=== PATIENT | male | born 1980 | race Caucasian/White ===

== ENCOUNTER 2020-01-19 13:45 | Inpatient (IN) | payer OTHER, SELFPAY ==
[2020-01-19] MEDS ORDERED: Midazolam HCl 5 mg/ml Vial ONE (14:03)
[2020-01-19 14:31] LABS: Bilirubin Negative (Negative); Blood, Urine Negative (Negative); Clarity Clear (Clear); Glucose, Urine (Dipstick) Normal (Negative); Ketone, Urine 10 mg/dL (Negative); Leukocyte Negative Leu/uL (Negative); Nitrite Negative (Negative); Protein, Urine (Dipstick) 20 mg/dL (Neg-Trace); Specific Gravity, Urine 1.035 (1.002-1.036); Urobilinogen Normal mg/dL (Less than 2); pH, Urine 5.5 (5.0-9.0)
[2020-01-19 14:42] LABS: #Basophils 0.1 thou/uL (0.0-0.2); #Eosinphils 0.2 thou/uL (0.0-0.7); #Lymphocytes 2.1 thou/uL (1.20-3.40); #Monocytes 1.1 thou/uL (0.11-0.59); #Neutrophils 6.3 thou/uL (1.40-6.50); %Basophils 0.8 % (0.0-1.0); %Eosinophils 1.7 % (0.0-10.0); %Lymphocytes 21.6 % (21.0-51.0); %Monocytes 11.6 % (0.0-10.0); %Neutrophils 64.2 % (42.0-75.0); Hemoglobin 15.2 g/dL (14.0-18.0); Mean Corpuscular HGB CONC 35.2 g/dL (32.0-36.0); Mean Platelet Volume 6.3 fL (7.4-10.4); Platelet Count 374 thou/uL (130-400); RBC Distribution Width 11.2 % (11.5-14.5); Red Blood Cell (RBC) Count 4.89 mill/uL (4.70-6.10); White Blood Cell (WBC) Count 9.9 thou/uL (4.8-10.8)
[2020-01-19 14:58] LABS: Amphetamine Detected (NotDetected); Barbiturates Screen Not Detected (NotDetected); Benzodiazepine Screen Not Detected (NotDetected); Cocaine Metabolite Screen Not Detected (NotDetected); Medtox Control Line Valid? VALID (VALID); Medtox Reader # READER 1; Methadone Not Detected (NotDetected); Methamphetamine Detected (NotDetected); Opiate Screen Not Detected (NotDetected); Oxycodone Screen Not Detected (NotDetected); Phencyclidine (PCP) Not Detected (NotDetected); THC/Cannabinoid Screen Detected (NotDetected); Tricyclic Screen Not Detected (NotDetected)
[2020-01-19 15:03] LABS: Acetaminophen Less than 6.0 mcg/mL (10.0-30.0); Alcohol Less than 10 mg/dL (Less than 10); CK (CPK) 2946 U/L (30-200); Salicylate Less than 8.0 mg/dL (15.0-30.0)
[2020-01-19 15:06] LABS: ALT (SGPT) 65 U/L (8-55); AST (SGOT) 135 U/L (5-34); Albumin 4.1 g/dL (3.5-5.0); Alkaline Phosphatase 46 U/L (40-110); Anion Gap 16 mmol/L (10-20); BUN (Urea Nitrogen) 25 mg/dL (8.9-20.6); Bilirubin, Total 2.4 mg/dL (0.2-1.2); Calc. Creatinine Clearance 0 mL/min (70-130); Carbon Dioxide 26 mmol/L (22-29); Chloride 100 mmol/L (98-107); Globulin 2.8 g/dL (2.4-3.5); Glucose 85 mg/dL (70-105); Potassium 3.6 mmol/L (3.5-5.1); Protein, Total 6.9 g/dL (6.0-8.3); Sodium 138 mmol/L (136-145)
--- NOTE | 2020-01-19 15:31 | PDOC.FPRHP ---
- History of Present Illness Chief Complaint: AMS History of Present Illness: Patient is a 39yo with a history of Schizoaffective disorder who is brought to the ED by police due to erratic behavior. Patient was taken into police custody yesterday evening, and since this has had erratic behavior including delusions of his mom being with him, statements about "binomial code that God was bringing", and periods where he bursts out in screams about "saving the children" after periods of calm. History was obtained by the sheriff sosa. Due to his agitation patient received 4mg versed on arrival to the ED. He would wake up briefly and answer a few questions before going to sleep. Often did not make sense talking about children. Denies pain anywhere. Denied SI. - Allergies/Adverse Reactions Allergies Allergy/AdvReac Type Severity Reaction Status Date / Time No Known Allergies Allergy Unverified 01/19/20 17:08 - History PMHx: SChizoaffective Disorder, Liver Cirrhosis (obtained from ER records) PSHx: inguinal hernia surgery x3, nasal surgery (per ER records) FHx: unknown Social: unable to obtain - Review of Systems ROS unobtainable: due to mental status (currently sleeping, would wake up for short periods of time, answered no pain) - Vital signs BP: 129/67, Pulse: 85, Resp: 17, Temp: 97.7 (Oral), Pain: 0, O2 sat: 96 on (Room Air), Wt 83.9kg - Physical Exam -Constitutional: Currently sleeping, would only wake up briefly HEENT: PERRLA, MMM, other (healing ecchymosis bialteral eye lids, healing laceration across forehead) Neck: supple, trachea midline Heart: RRR, normal S1/S2, no murmurs/rubs/gallops Lungs: CTAB, no respiratory distress, no wheezing Abdomen: soft, non-tender, bowel sounds present Musculoskeletal: normal structure, normal tone Neurological: no focal deficit Skin: no rash/lesions, good turgor, no jaundice Heme/Lymphatic: no purpura, no petechia FMR H&P: Results - Labs Result Diagrams: 01/19/20 14:25 01/19/20 14:25 Lab results: WBC 9.9 thou/uL (4.8-10.8) 01/19/20 14:25 Hgb 15.2 g/dL (14.0-18.0) 01/19/20 14:25 Hct 43.1 % (42.0-52.0) 01/19/20 14:25 MCV 88.0 fL (78.0-98.0) 01/19/20 14:25 Plt Count 374 thou/uL (130-400) 01/19/20 14:25 Neutrophils % 64.2 % (42.0-75.0) 01/19/20 14:25 Sodium 138 mmol/L (136-145) 01/19/20 14:25 Potassium 3.6 mmol/L (3.5-5.1) 01/19/20 14:25 Chloride 100 mmol/L (98-107) 01/19/20 14:25 Carbon Dioxide 26 mmol/L (22-29) 01/19/20 14:25 BUN 25 mg/dL (8.9-20.6) H 01/19/20 14:25 Creatinine 0.94 mg/dL (0.7-1.3) 01/19/20 14:25 Glucose 85 mg/dL (70-105) 01/19/20 14:25 Calcium 9.0 mg/dL (7.8-10.44) 01/19/20 14:25 Total Bilirubin 2.4 mg/dL (0.2-1.2) H 01/19/20 14:25 AST 135 U/L (5-34) H 01/19/20 14:25 ALT 65 U/L (8-55) H 01/19/20 14:25 Alkaline Phosphatase 46 U/L (40-110) 01/19/20 14:25 Creatine Kinase 2946 U/L (30-200) H 01/19/20 14:25 Serum Total Protein 6.9 g/dL (6.0-8.3) 01/19/20 14:25 Albumin 4.1 g/dL (3.5-5.0) 01/19/20 14:25 Urine Ketones 10 mg/dL (Negative) A 01/19/20 14:11 Urine Blood Negative (Negative) 01/19/20 14:11 Urine Nitrite Negative (Negative) 01/19/20 14:11 Ur Leukocyte Esterase Negative Darryl/uL (Negative) 12/10/20 14:11 FMR H&P: A/P - Plan Rhabdomyolysis 2/2 Drug/ETOH Toxicity CK 2946, UA wnl UDS + THC/Cannabinoid, methamphetamine, amphetamine - CIRILO ordered - LR @ 200ml/hr - trend CKs Acute Psychosis 2/2 Schizoaffective Disorder vs Acute Toxic Encephalopathy 2/2 Drugs/ETOH UDS + THC/Cannabinoid, methamphetamine, amphetamine Suspect acute psychosis however could be acute alcohol intoxication or withdrawal - ASE protocol, oral thiamine - Haldol 5mg IV q4h prn for agitation, if withdrawal symptoms evident, consider switching to ativan - Hydro Sprayer Operator on substance abuse - [facility] consult once patient stable Elevated Enzymes, likely 2/2 ETOH abuse Hx of Liver Cirrhosis documented in ED history - AST/ALT 135/65 - will continue to monitor Code status: Full Fluids: IVFs Dispo: admit inpatient medicine, LOS likely >48 hours FMR H&P: Upper Level - Plan Date/Time: 01/19/20 1531 I, Rich Saxena DO, have evaluated this patient and agree with findings/plan as outlined by internal medicine nurse resident. Pertinent changes/additions are listed here. 39 yo m w/ pmhx of multiple psychiatric disorders and substance abuse presents from senior care with agitation. He is somnolent and does not readily respond to questioning on my exam. information is obtained from homicide squad commanding officer in room. arrested last night, with increasing agitation today, reported delusions, psychomotor agitation, auditory and visual hallucinations reported. in ED his CK and liver enzymes are elevated. otherwise UA and other labs are wnl. 4mg versed given in ED. Acute intoxication vs withdrawal vs psychosis. Most likely being psychosis we will treat agitation with prn haldol, we will place him on ASE protocol, for possible withdrawal and consider switching to ativan prn if withdr awal symptoms are more prominent. Will IVF rescus. and monitor CK. MR consult when stable. admit to inpt med. Addendum - Attending - Attending Attestation Date/Time: 01/19/20 1622 I personally evaluated the patient and discussed the management with Dr. Hernandez/Hemanth. I agree with the History, Examination, Assessment and Plan documented above with any addition or exceptions noted below. Patient here with police with supposed hallucinations, aggression, and polysubstance abuse. On labs, he was found to have elevated CK, no evidence of myoglobinuria on UA. He will be admitted for IVF hydration, strict I/O. Haldol PRN agitation, will likely need MR clearance prior to discharge. Hydro Sprayer Operator on substance abuse.
--- NOTE | 2020-01-19 15:45 | RAD ---
SINGLE VIEW OF THE CHEST: COMPARISON: None. HISTORY: Altered mental status. FINDINGS: Single view of the chest shows a normal sized cardiomediastinal silhouette. There is no evidence of c onsolidation, mass, or pleural effusion. The bones are unremarkable. IMPRESSION: No evidence of acute cardiopulmonary disease. POS: EAA
[2020-01-19] MEDS: Haloperidol Lactate 5 MG/ML VIAL SLOW IVP PRN ×2 (18:45→22:43)
[2020-01-19] MEDS: Lactated Ringer's 1,000 ML IV SCH ×2 (19:16→19:27)
[2020-01-19 19:22] VITALS: BMI 22.2
[2020-01-20] MEDS: Lactated Ringer's 1,000 ML IV SCH ×2 (00:27→10:46)
[2020-01-20] MEDS: Haloperidol Lactate 5 MG/ML VIAL SLOW IVP PRN (03:34)
--- NOTE | 2020-01-20 06:33 | PDOC.FM ---
- Subjective Subjective: Patient is sitting up eating in bed. Reports that he is in no pain. Denies auditory or visual hallucinations, SI/HI. States he has no pysch history. Will not say why he got put in skilled nursing. Denies substance abuse, or alcohol abuse. Reports bilateral hand swelling. Overnight report from nurse is that patient woke up a few times very agitated and screaming, was given haldol and calmed down and went back to sleep. - Objective MAR Reviewed: Yes Vital Signs & Weight: Weight Weight 66.406 kg I&O: 01/18/20 01/19/20 01/20/20 06:59 06:59 06:59 Intake Total 2300 Output Total 1200 Balance 1100 Result Diagrams: 01/20/20 05:57 01/20/20 05:57 Phys Exam - Physical Examination Constitutional: NAD HEENT: PERRLA, moist MMs Respiratory: no wheezing, clear to auscultation bilateral Cardiovascular: RRR, no significant murmur Gastrointestinal: soft, non-tender, positive bowel sounds edema in bilateral hands Neurological: non-focal, moves all 4 limbs Psychiatric: normal affect, A&O x 3 Skin: no rash Dx/Plan - Plan Plan: Rhabdomyolysis 2/2 Drug/ETOH Toxicity CK 2946 --> 1031 , UA wnl UDS + THC/Cannabinoid, methamphetamine, amphetamine - continue IVFs - will get repeat CK later this morning Acute Psychosis 2/2 Schizoaffective Disorder vs Acute Toxic Encephalopathy 2/2 Drugs/ETOH UDS + THC/Cannabinoid, methamphetamine, amphetamine Suspect acute psychosis however could be acute alcohol intoxication or withdrawa l - ASE protocol, oral thiamine - Haldol 5mg IV q4h prn for agitation, if withdrawal symptoms evident, consider switching to ativan - Senior Electronics Design Engineer on substance abuse - [facility] consult once patient stable possibly later this morning if CK improved Elevated Enzymes, likely 2/2 ETOH abuse Hx of Liver Cirrhosis documented in ED history - AST/ALT 72/47 - will continue to monitor Code status: Full Fluids: IVFs Dispo: admit inpatient medicine, LOS likely >48 hours Addendum - Attending - Attending Attestation Date/Time: 01/20/20 1039 I personally evaluated the patient and discussed the management with Dr. Hernandez. I agree with the History, Examination, Assessment and Plan documented above with any addition or exceptions noted below. Mentation improved. CK downtrending appropriately. Will recheck at noon and suspect he will be medically stable for discharge at that time, will likely need MHMR clearance prior to dc given his appearance of psychosis yesterday.
[2020-01-20 06:47] LABS: ALT (SGPT) 47 U/L (8-55); AST (SGOT) 72 U/L (5-34); Albumin 2.9 g/dL (3.5-5.0); Alkaline Phosphatase 36 U/L (40-110); Anion Gap 10 mmol/L (10-20); BUN (Urea Nitrogen) 15 mg/dL (8.9-20.6); Bilirubin, Total 1.3 mg/dL (0.2-1.2); CK (CPK) 1031 U/L (30-200); Calc. Creatinine Clearance 112 mL/min (70-130); Calcium 7.6 mg/dL (7.8-10.44); Carbon Dioxide 26 mmol/L (22-29); Chloride 106 mmol/L (98-107); Globulin 1.9 g/dL (2.4-3.5); Glucose 154 mg/dL (70-105); Potassium 3.6 mmol/L (3.5-5.1); Protein, Total 4.8 g/dL (6.0-8.3); Sodium 138 mmol/L (136-145)
[2020-01-20 06:48] LABS: Band 1 % (5-11); Eosinophils 1 % (0-10); Hemoglobin 13.1 g/dL (14.0-18.0); Lymphocytes 44 % (21-51); MDiff Complete? YES; Mean Corpuscular HGB CONC 34.9 g/dL (32.0-36.0); Mean Corpuscular Hemoglobin 31.2 pg (27.0-31.0); Mean Corpuscular Volume 89.2 fL (78.0-98.0); Mean Platelet Volume 6.5 fL (7.4-10.4); Monocytes 3 % (0-10); Neutrophil 51 % (42-75); Platelet Count 287 thou/uL (130-400); Platelet Morphology Comment Appears Adequate; RBC Distribution Width 11.3 % (11.5-14.5); Red Blood Cell (RBC) Count 4.21 mill/uL (4.70-6.10); White Blood Cell (WBC) Count 6.4 thou/uL (4.8-10.8)
[2020-01-20] MEDS ORDERED: Thiamine 100 MG TAB PO SCH (09:00)
[2020-01-20] MEDS ORDERED: Haloperidol Lactate 5 MG/ML VIAL IM PRN (09:53)
[2020-01-20 16:42] VITALS: TEMP 97.8
[2020-01-20 17:11] VITALS: BP 125/77
--- NOTE | 2020-01-24 14:23 | DIS ---
DATE OF ADMISSION: 01/19/2020 DATE OF DISCHARGE: 01/20/2020 ADMITTING ATTENDING: J Carlos Zambrano MD DISCHARGE ATTENDING: J Carlos Zambrano MD. RESIDENT: Yoselin Hernandez DO. CONSULTS: None. PROCEDURES: None. PRIMARY DIAGNOSIS: Rhabdomyolysis secondary to Acute Intoxication SECONDARY DIAGNOSES: Acute psychosis secondary to schizoaffective disorder vs. acute toxic encephalopathy secondary to drugs and alcohol abuse, elevated enzymes likely 2/2 alcohol abuse. MEDICATIONS: Discharge medications, none. Discontinued medications, none. HISTORY OF PRESENT ILLNESS AND HOSPITAL COURSE: The patient is a 39-year-old with history of schizoaffective disorder, brought to the ED by police due to erratic behavior. The patient was taken into police custody yesterday evening. Since then, he had erratic behavior including delusions and his mom being with him, statements about "binomials from God"and periods where he burst out in screams. Initial history was obtained by . In the ED due to agitation, the patient was given 4 mg of Versed, which calmed him down and also made him sleepy. The patient's CK in the ED was 2946. UDS was positive for THC, cannabinoids, methamphetamine, amphetamines. Haldol started for agitation p.r.n. q.4 hours due to acute pyschosis, and ASE protocol was started as we were unsure of ETOH intoxication. AST and ALT were 135 and 65. The following day, the patient's CK was reduced to 1031 with IV fluids. Later that afternoon, it went down to 851. MHMR was consulted as the patient was now medically stable [facility] requested that they follow up with the patient when he returned back to custodial, which we decided was appropriate. DISPOSITION: Stable. DISCHARGE INSTRUCTIONS: 1. Location: [facility]. 2. Diet: Regular. 3. Activity: Ad jay. 4. Followup: Follow up with primary care physician in 7 to 14 days. Job ID: [id number] [facility]ITALElina
--- NOTE | 2020-01-25 00:43 | PQF ---
CLINICAL DOCUMENTATION CLARIFICATION FORM: Dear : DANO DANIEL MD Date / Time: 01/24/2020 Please exercise your independent, professional judgment in responding to the clarification form. Clinical indicators are provided on the bottom of this form for your review Please check appropriate box(es): to clarify the toxicity of drug/OH etiology [ ] Overdose of drug and alcohol [ ] Adverse effect of drug and alcohol [ ] Other diagnosis (Please specify if any) [ ] Unable to determine Physician Signature: Date/Time: For continuity of documentation, please document condition throughout progress notes and discharge summary. Thank You To be completed by CDI/Coding staff for physician review: Present Clinical Indicators - Signs / Symptoms / Labs Results and Location in Medical Record [x] Rhabdomyolysis 2/2 drug/ETOH toxicity H&P on 01/18 [x] UDS- THC/cannobinoid, methamphetamine, amphetamine H&P on 01/18 [x] Elevated liver enzymes liekly 2/2 ETOH abuse H&P on 01/18 [x] Acute psychosis 2/2 schizoaffective disorder vs acute toxic encephalopathy 2/2 drug/ETOH H&P on 01/18 [x] Suspect acute psychosis however could be alcohol intoxication or withdrawal H&P on 01/18 Present Risk Factors Results and Location in Medical Record [x] ETOH abuse, substance abuse H&P on 01/18 [x] Present Treatments Results and Location in Medical Record [x] Food Service Utility Worker on substance abuse H&P on 01/18 [x] Haldol 5mg IV Medication on 01/18, 01/19 [x] Thiamine 100 mgPO Medication on 01/19 [x] CDS/Exhaust And Muffler Fitter Signature: AAS Phone #: Date/Time: 01/24/2020 This is a permanent part of the Medical Record [facility]
--- NOTE | 2020-01-25 00:57 | PQF ---
CLINICAL DOCUMENTATION CLARIFICATION FORM: Dear : DANO DANIEL MD Date / Time: 01/25/2020 Please exercise your independent, professional judgment in responding to the clarification form. Clinical indicators are provided on the bottom of this form for your review Please check appropriate box(es): [ ] Encephalopathy: Type: [ ] Acute [ ] Subacute [ ] Chronic Etiology: [ ] Hypertensive [ ] Metabolic [ ] Toxic [ ] Drug induced: [ ] Unspecified [ ] Other (please specify) [ ] Other diagnosis (Please specify if any) [ ] Unable to determine In addition, please specify: Present on Admission (POA): [ ] Yes [ ] No [ ] Unable to determine Physician Signature: Date/Time: For continuity of documentation, please document condition throughout progress notes and discharge summary. Thank You. To be completed by CDI/Coding staff for physician review: Present Clinical Indicators - Signs / Symptoms / Labs Results and Location in Medical Record [x] agitated ED provider report on 01/18 [ ] Confusion/altered mental status different from dementia baseline [ ] Metabolic / electrolyte abnormality [ ] Hypoxia for prolonged period [x] Rhabdomyolysis 2/2 Drug/ETOH Toxicity H&P on 01/18 [x] Acute psychosis 2/2 schizoaffective disorder vs acute toxic encephalopathy 2/2 drugs/ETOH H&P on 01/18 [ ] IV meds that can cause altered mental state [ ] Cerebral Edema [ ] Severe malnutrition [ ] EEG Present Risk Factors Results and Location in Medical Record [ ] Hypertension - uncontrolled [x] ETOH/ Drugs toxicity H&P on 01/18 [x] ETOH abuse H&P on 01/18 [ ] Meningitis [ ] Brain tumor / elevated ICP [ ] DKA or hypoglycemia Present Treatments Results and Location in Medical Record [ ] Neuro checks / neurology consult [ x ] auto travel counselor on substance abuse H&P on 01/18 [x] Haldol 5mg Medication on 01/19 [x] Thiamine 100 mg po Medication on 01/19 [ ] Oxygen therapy [ ] Nutritional supplements-TPN/TF [ ] Correction of electrolyte imbalances [ ] IV antibiotics CDS/Control Valve Technician Signature: AAS Phone #: Date/Time: 01/25/2020 This is a permanent part of the Medical Record [facility]
== END 2020-01-20 17:05 | DRG 557 ==
LOC: ERS 13:45 → T4-B 15:35
PROVIDERS: ADMIT Specialist; ATTEND Specialist
DX: M62.82 Rhabdomyolysis (principal); G92 Toxic encephalopathy; F41.9 Anxiety disorder, unspecified; F20.9 Schizophrenia, unspecified
CPT/HCPCS: 36415; 71045; 80053; 80306; 80307; 81003; 82550; 84443; 85007; 85025; 85027; 96372; J1630; J2250